=== PATIENT | male | born 1975 | race African-American/Black ===

== ENCOUNTER 2017-01-31 10:39 | Emergency (ER) | payer OTHER ==
[~2017-01-31] VITALS: Ht 172.7 cm; Wt 87.1 kg
[~2017-01-31 10:39] MED LIST: BP PILL
[2017-01-31] MEDS ORDERED: GRALISE1 EACH (10:46)
== END 2017-01-31 11:11 | disposition home or self-care (01) ==
LOC: SED 10:39
DX: S40.861A Insect bite (nonvenomous) of right upper arm, initial encounter (principal); L03.113 Cellulitis of right upper limb; M72.2 Plantar fascial fibromatosis; W57.XXXA Bitten or stung by nonvenomous insect and other nonvenomous arthropods, initial encounter; Y92.009 Unspecified place in unspecified non-institutional (private) residence as the place of occurrence of the external cause
CPT/HCPCS: 99283